=== PATIENT | male | born 1965 | race Caucasian/White ===

== ENCOUNTER 2016-11-05 21:52 | Emergency (ER) | payer OTHER ==
--- NOTE | 2016-11-05 22:51 | DIAGNOSTIC IMAGING REPORT ---
PROCEDURE: XR CHEST 2 VIEW INDICATION: CHEST PAIN TECHNIQUE: PA and lateral views. COMPARISON: Compared to chest x-ray on 05/08/2011. FINDINGS: Lungs are clear. Heart and mediastinum are normal. Thorax is normal. IMPRESSION: 1. Negative chest.
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
--- NOTE | 2016-11-05 22:56 | ED ORDER SUMMARY ---
..... Patient: JOÃO NGO JR OrderSheet [facility] VisitID: [id number] [place] [address] 51y, M Registration Date/Time: 11/05/2016 ORDER SHEET Weight: 88.4 kg (stated) Allergies: NKA GENERAL ORDERS: Chest 2V Urgent (22:06 11/05/2016 EKoroleva P.A.-C) (Ack 22:11 CHagerty ER Cytogenetic Technologist) (22:17 CHagerty ER Cytogenetic Technologist) EKG - ER Stat (22:06 11/05/2016 EKoroleva P.A.-C) (Ack 22:11 CHagerty ER Cytogenetic Technologist) (22:11 CHagerty ER Cytogenetic Technologist) MEDICATION ORDERS: Percocet PO 5/325 mg (HIGH ALERT MEDICATION, NOW) (22:54 11/05/2016 EKoroleva P.A.-C) (Ack 22:57 DDean R.N.) (23:13 DDean R.N.) Flexeril PO 10 mg (NOW) (23:01 11/05/2016 EKoroleva P.A.-C) (23:08 DDean R.N.) IV FLUIDS: ORDER SHEET NOTES: [Electronically signed by Jenniffer LunaAKeny-C (23:06 11/05/2016)] [Electronically signed by Riana Roque R.N. (23:11/05/2016)] [Electronically locked/signed by Riana Roque R.N. (23:14 11/05/2016)]
--- NOTE | 2016-11-05 22:56 | ED ORDER SUMMARY ---
..... Patient: JOÃO NGO JR OrderSheet [facility] VisitID: [id number] [place] [address] 51y, M Registration Date/Time: 11/05/2016 ORDER SHEET Weight: 88.4 kg (stated) Allergies: NKA GENERAL ORDERS: Chest 2V Urgent (22:06 11/05/2016 EKoroleva P.A.-C) (Ack 22:11 CHagerty ER Type Casting Machine Operator) (22:17 CHagerty ER Type Casting Machine Operator) EKG - ER Stat (22:06 11/05/2016 EKoroleva P.A.-C) (Ack 22:11 CHagerty ER Type Casting Machine Operator) (22:11 CHagerty ER Type Casting Machine Operator) MEDICATION ORDERS: Percocet PO 5/325 mg (HIGH ALERT MEDICATION, NOW) (22:54 11/05/2016 EKoroleva P.A.-C) (Ack 22:57 DDean R.N.) (23:13 DDean R.N.) Flexeril PO 10 mg (NOW) (23:01 11/05/2016 EKoroleva P.A.-C) (23:08 DDean R.N.) IV FLUIDS: ORDER SHEET NOTES: [Electronically signed by Jenniffer LunaAKeny-C (23:06 11/05/2016)] [Electronically signed by Riana Roque R.N. (23:11/05/2016)] [Electronically locked/signed by Riana Roque R.N. (23:14 11/05/2016)]
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
--- NOTE | 2016-11-05 23:14 | ED MED RECONCILIATION SUMMARY ---
Patient: JOÃO NGO JR Medication Reconciliation Report [facility] VisitID: [id number] [address] [place] [address] 51y, M Registration Date/Time: 11/05/2016 Weight: 88.4 kg Height/Length: 70 in. BMI: 28.0 ALLERGIES: NKA The patient's Home Medications are listed below: THE FOLLOWING MEDICATIONS NEED TO BE RECONCILED: Lopid Oral 600 mg, 2x a day PriLOSEC Oral 40 mg, daily Zocor Oral, daily The source(s) of the original Home Medication information: Not obtained. The following Medications were given to the patient in the Emergency Department: Flexeril [PO] PO 10 mg, administered: 11/05/2016 11:00:00 PM Percocet [PO] PO 1 tab, administered: 11/05/2016 10:50:00 PM The following Medications were prescribed to the patient: Hydrocodone/APAP 5mg / 325mg: take 1 orally every 6 hours as needed for pain. Dispense fifteen (15). No refill. -- Jenniffer Luna, P.A.-Bakari Robaxin 750 mg: take 1 orally every 8 hours for 3 days, as needed for muscle spasm. Dispense fifteen (15). No refill. Substitution is permissible. -- Jenniffer Luna, P.A.-C
--- NOTE | 2016-11-05 23:14 | ED DISCHARGE INSTRUCTIONS ---
Patient: JOÃO NGO JR General Instructions [facility] VisitID: [id number] [address] [place] [address] 51y, M Registration Date/Time: 11/05/2016 Chronic thoracic and lumbar back pain. Hypertension. INSTRUCTIONS Apply ice. ([facility] ). Prescription Medications: Hydrocodone/APAP 5mg / 325mg: take 1 orally every 6 hours as needed for pain. Dispense fifteen (15). No refill. Robaxin 750 mg: take 1 orally every 8 hours for 3 days, as needed for muscle spasm. Dispense fifteen (15). No refill. Substitution is permissible. Follow-up: Follow up with your doctor in three days. Understanding of the discharge instructions verbalized by patient. ADDITIONAL INFORMATION Back Pain [Acute Or Chronic] Back pain is usually caused by an injury to the muscles or ligaments of the spine. Sometimes the disks that separate each bone in the spine may bulge and cause pain by pressing on a nearby nerve. Back pain may also appear after a sudden twisting/bending force (such as in a car accident), after a simple awkward movement, or lifting something heavy with poor body positioning. In either case, muscle spasm is often present and adds to the pain. Acute back pain usually gets better in one to two weeks. Back pain related to disk disease, arthritis in the spinal joints or spinal stenosis (narrowing of the spinal canal) can become chronic and last for months or years. Unless you had a physical injury (for example, a car accident or fall) X-rays are usually not ordered for the initial evaluation of back pain. If pain continues and does not respond to medical treatment, x-rays and other tests may be performed at a later time. Home Care: You may need to stay in bed the first few days. But, as soon as possible, begin sitting or walking to avoid problems with prolonged bed rest (muscle weakness, worsening back stiffness and pain, blood clots in the legs). When in bed, try to find a position of comfort. A firm mattress is best. Try lying flat on your back with pillows under your knees. You can also try lying on your side with your knees bent up towards your chest and a pillow between your knees. Avoid prolonged sitting. This puts more stress on the lower back than standing or walking. During the first two days after injury, apply an ICE PACK to the painful area for 20 minutes every 2-4 hours. This will reduce swelling and pain. HEAT (hot shower, hot bath or heating pad) works well for muscle spasm. You can start with ice, then switch to heat after two days. Some patients feel best alternating ice and heat treatments. Use the one method that feels the best to you. You may use acetaminophen (Tylenol) or ibuprofen (Motrin, Advil) to control pain, unless another pain medicine was prescribed. [NOTE: If you have chronic liver or kidney disease or ever had a stomach ulcer or GI bleeding, talk with your doctor before using these medicines.] Be aware of safe lifting methods and do not lift anything over 15 pounds until all the pain is gone. Follow Up with your doctor or this facility if your symptoms do not start to improve after one week. Physical therapy may be needed. [NOTE: If X-rays were taken, they will be reviewed by a radiologist. You will be notified of any new findings that may affect your care.] Get Prompt Medical Attention if any of the following occur: Pain becomes worse or spreads to your legs Weakness or numbness in one or both legs Loss of bowel or bladder control Numbness in the groin or genital area Hydrocodone Bitartrate, Acetaminophen Oral tablet What is this medicine? ACETAMINOPHEN; HYDROCODONE (a set a DANDY wendy fen; aram droe KOE done) is a pain reliever. It is used to treat mild to moderate pain. How should I use this medicine? Take this medicine by mouth. Swallow it with a full glass of water. Follow the directions on the prescription label. If the medicine upsets your stomach, take the medicine with food or milk. Do not take more than you are told to take. Talk to your crinkling machine operator regarding the use of this medicine in children. This medicine is not approved for use in children. What side effects may I notice from receiving this medicine? Side effects that you should report to your doctor or health healthcare network consultant as soon as possible: allergic reactions like skin rash, itching or hives, swelling of the face, lips, or tongue breathing problems confusion feeling faint or lightheaded, falls stomach pain yellowing of the eyes or skin Side effects that usually do not require medical attention (report to your doctor or health healthcare network consultant if they continue or are bothersome): nausea, vomiting stomach upset What may interact with this medicine? alcohol antihistamines isoniazid medicines for depression, anxiety, or psychotic disturbances medicines for sleep muscle relaxants naltrexone narcotic medicines (opiates) for pain phenobarbital ritonavir tramadol What if I miss a dose? If you miss a dose, take it as soon as you can. If it is almost time for your next dose, take only that dose. Do not take double or extra doses. Where should I keep my medicine? Keep out of the reach of children. This medicine can be abused. Keep your medicine in a safe place to protect it from theft. Do not share this medicine with anyone. Selling or giving away this medicine is dangerous and against the law. Store at room temperature between 15 and 30 degrees C (59 and 86 degrees F). Protect from light. Keep container tightly closed. Throw away any unused medicine after the expiration date. Discard unused medicine and used packaging carefully. Pets and children can be harmed if they find used or lost packages. What should I tell my health care provider before I take this medicine? They need to know if you have any of these conditions: brain tumor Crohn's disease, inflammatory bowel disease, or ulcerative colitis drink more than 3 alcohol-containing drinks per day drug abuse or addiction head injury heart or circulation problems kidney disease or problems going to the bathroom liver disease lung disease, asthma, or breathing problems an unusual or allergic reaction to acetaminophen, hydrocodone, other opioid analgesics, other medicines, foods, dyes, or preservatives or trying to get breast-feeding What should I watch for while using this medicine? Tell your doctor or health healthcare network consultant if your pain does not go away, if it gets worse, or if you have new or a different type of pain. You may develop tolerance to the medicine. Tolerance means that you will need a higher dose of the medicine for pain relief. Tolerance is normal and is expected if you take the medicine for a long time. Do not suddenly stop taking your medicine because you may develop a severe reaction. Your body becomes used to the medicine. This does NOT mean you are addicted. Addiction is a behavior related to getting and using a drug for a non-medical reason. If you have pain, you have a medical reason to take pain medicine. Your doctor will tell you how much medicine to take. If your doctor wants you to stop the medicine, the dose will be slowly lowered over time to avoid any side effects. You may get drowsy or dizzy when you first start taking the medicine or change doses. Do not drive, use machinery, or do anything that may be dangerous until you know how the medicine affects you. Stand or sit up slowly. There are different types of narcotic medicines (opiates) for pain. If you take more than one type at the same time, you may have more side effects. Give your health care provider a list of all medicines you use. Your doctor will tell you how much medicine to take. Do not take more medicine than directed. Call emergency for help if you have problems breathing. The medicine will cause constipation. Try to have a bowel movement at least every 2 to 3 days. If you do not have a bowel movement for 3 days, call your doctor or health healthcare network consultant. Too much acetaminophen can be very dangerous. Do not take Tylenol (acetaminophen) or medicines that contain acetaminophen with this medicine. Many non-prescription medicines contain acetaminophen. Always read the labels carefully. Methocarbamol Oral tablet What is this medicine? METHOCARBAMOL (meth oh SAVITA ba mole) helps to relieve pain and stiffness in muscles caused by strains, sprains, or other injury to your muscles. How should I use this medicine? Take this medicine by mouth with a full glass of water. Follow the directions on the prescription label. Take your medicine at regular intervals. Do not take your medicine more often than directed. Talk to your crinkling machine operator regarding the use of this medicine in children. Special care may be needed. What side effects may I notice from receiving this medicine? Side effects that you should report to your doctor or health healthcare network consultant as soon as possible: allergic reactions like skin rash, itching or hives, swelling of the face, lips, or tongue blurred vision or changes in vision confusion fainting spells fever nausea or vomiting seizures Side effects that usually do not require medical attention (report to your doctor or health healthcare network consultant if they continue or are bothersome): dizziness drowsiness headache metallic taste What may interact with this medicine? alcohol or medicines that contain alcohol cholinesterase inhibitors like neostigmine, ambenonium, and pyridostigmine bromide other medicines that cause drowsiness What if I miss a dose? If you miss a dose, take it as soon as you can. If it is almost time for your next dose, take only the next dose. Do not take double or extra doses. Where should I keep my medicine? Keep out of the reach of children. Store at room temperature between 20 and 25 degrees C (68 and 77 degrees F). Keep container tightly closed. Throw away any unused medicine after the expiration date. What should I tell my health care provider before I take this medicine? They need to know if you have any of these conditions: kidney disease seizures an unusual or allergic reaction to methocarbamol, other medicines, foods, dyes, or preservatives or trying to get breast-feeding What should I watch for while using this medicine? You may get drowsy or dizzy. Do not drive, use machinery, or do anything that needs mental alertness until you know how this medicine affects you. Do not stand or sit up quickly, especially if you are an older patient. This reduces the risk of dizzy or fainting spells. Alcohol may interfere with the effect of this medicine. Avoid alcoholic drinks. You have been given the following additional information: Back Pain (Acute Or Chronic) Hydrocodone Bitartrate, Acetaminophen Oral tablet Methocarbamol Oral tablet (Electronically signed by Jenniffer Luna P.A.-C 11/05/2016 23:06)
--- NOTE | 2016-11-05 23:14 | ED DISCHARGE INSTRUCTIONS ---
Patient: JOÃO NGO JR General Instructions [facility] VisitID: [id number] [address] [place] [address] 51y, M Registration Date/Time: 11/05/2016 Chronic thoracic and lumbar back pain. Hypertension. INSTRUCTIONS Apply ice. ([facility] ). Prescription Medications: Hydrocodone/APAP 5mg / 325mg: take 1 orally every 6 hours as needed for pain. Dispense fifteen (15). No refill. Robaxin 750 mg: take 1 orally every 8 hours for 3 days, as needed for muscle spasm. Dispense fifteen (15). No refill. Substitution is permissible. Follow-up: Follow up with your doctor in three days. Understanding of the discharge instructions verbalized by patient. ADDITIONAL INFORMATION Back Pain [Acute Or Chronic] Back pain is usually caused by an injury to the muscles or ligaments of the spine. Sometimes the disks that separate each bone in the spine may bulge and cause pain by pressing on a nearby nerve. Back pain may also appear after a sudden twisting/bending force (such as in a car accident), after a simple awkward movement, or lifting something heavy with poor body positioning. In either case, muscle spasm is often present and adds to the pain. Acute back pain usually gets better in one to two weeks. Back pain related to disk disease, arthritis in the spinal joints or spinal stenosis (narrowing of the spinal canal) can become chronic and last for months or years. Unless you had a physical injury (for example, a car accident or fall) X-rays are usually not ordered for the initial evaluation of back pain. If pain continues and does not respond to medical treatment, x-rays and other tests may be performed at a later time. Home Care: You may need to stay in bed the first few days. But, as soon as possible, begin sitting or walking to avoid problems with prolonged bed rest (muscle weakness, worsening back stiffness and pain, blood clots in the legs). When in bed, try to find a position of comfort. A firm mattress is best. Try lying flat on your back with pillows under your knees. You can also try lying on your side with your knees bent up towards your chest and a pillow between your knees. Avoid prolonged sitting. This puts more stress on the lower back than standing or walking. During the first two days after injury, apply an ICE PACK to the painful area for 20 minutes every 2-4 hours. This will reduce swelling and pain. HEAT (hot shower, hot bath or heating pad) works well for muscle spasm. You can start with ice, then switch to heat after two days. Some patients feel best alternating ice and heat treatments. Use the one method that feels the best to you. You may use acetaminophen (Tylenol) or ibuprofen (Motrin, Advil) to control pain, unless another pain medicine was prescribed. [NOTE: If you have chronic liver or kidney disease or ever had a stomach ulcer or GI bleeding, talk with your doctor before using these medicines.] Be aware of safe lifting methods and do not lift anything over 15 pounds until all the pain is gone. Follow Up with your doctor or this facility if your symptoms do not start to improve after one week. Physical therapy may be needed. [NOTE: If X-rays were taken, they will be reviewed by a radiologist. You will be notified of any new findings that may affect your care.] Get Prompt Medical Attention if any of the following occur: Pain becomes worse or spreads to your legs Weakness or numbness in one or both legs Loss of bowel or bladder control Numbness in the groin or genital area Hydrocodone Bitartrate, Acetaminophen Oral tablet What is this medicine? ACETAMINOPHEN; HYDROCODONE (a set a DANDY wenyd fen; aram droe KOE done) is a pain reliever. It is used to treat mild to moderate pain. How should I use this medicine? Take this medicine by mouth. Swallow it with a full glass of water. Follow the directions on the prescription label. If the medicine upsets your stomach, take the medicine with food or milk. Do not take more than you are told to take. Talk to your property developer regarding the use of this medicine in children. This medicine is not approved for use in children. What side effects may I notice from receiving this medicine? Side effects that you should report to your doctor or health health care administrator as soon as possible: allergic reactions like skin rash, itching or hives, swelling of the face, lips, or tongue breathing problems confusion feeling faint or lightheaded, falls stomach pain yellowing of the eyes or skin Side effects that usually do not require medical attention (report to your doctor or health health care administrator if they continue or are bothersome): nausea, vomiting stomach upset What may interact with this medicine? alcohol antihistamines isoniazid medicines for depression, anxiety, or psychotic disturbances medicines for sleep muscle relaxants naltrexone narcotic medicines (opiates) for pain phenobarbital ritonavir tramadol What if I miss a dose? If you miss a dose, take it as soon as you can. If it is almost time for your next dose, take only that dose. Do not take double or extra doses. Where should I keep my medicine? Keep out of the reach of children. This medicine can be abused. Keep your medicine in a safe place to protect it from theft. Do not share this medicine with anyone. Selling or giving away this medicine is dangerous and against the law. Store at room temperature between 15 and 30 degrees C (59 and 86 degrees F). Protect from light. Keep container tightly closed. Throw away any unused medicine after the expiration date. Discard unused medicine and used packaging carefully. Pets and children can be harmed if they find used or lost packages. What should I tell my health care provider before I take this medicine? They need to know if you have any of these conditions: brain tumor Crohn's disease, inflammatory bowel disease, or ulcerative colitis drink more than 3 alcohol-containing drinks per day drug abuse or addiction head injury heart or circulation problems kidney disease or problems going to the bathroom liver disease lung disease, asthma, or breathing problems an unusual or allergic reaction to acetaminophen, hydrocodone, other opioid analgesics, other medicines, foods, dyes, or preservatives or trying to get breast-feeding What should I watch for while using this medicine? Tell your doctor or health health care administrator if your pain does not go away, if it gets worse, or if you have new or a different type of pain. You may develop tolerance to the medicine. Tolerance means that you will need a higher dose of the medicine for pain relief. Tolerance is normal and is expected if you take the medicine for a long time. Do not suddenly stop taking your medicine because you may develop a severe reaction. Your body becomes used to the medicine. This does NOT mean you are addicted. Addiction is a behavior related to getting and using a drug for a non-medical reason. If you have pain, you have a medical reason to take pain medicine. Your doctor will tell you how much medicine to take. If your doctor wants you to stop the medicine, the dose will be slowly lowered over time to avoid any side effects. You may get drowsy or dizzy when you first start taking the medicine or change doses. Do not drive, use machinery, or do anything that may be dangerous until you know how the medicine affects you. Stand or sit up slowly. There are different types of narcotic medicines (opiates) for pain. If you take more than one type at the same time, you may have more side effects. Give your health care provider a list of all medicines you use. Your doctor will tell you how much medicine to take. Do not take more medicine than directed. Call emergency for help if you have problems breathing. The medicine will cause constipation. Try to have a bowel movement at least every 2 to 3 days. If you do not have a bowel movement for 3 days, call your doctor or health health care administrator. Too much acetaminophen can be very dangerous. Do not take Tylenol (acetaminophen) or medicines that contain acetaminophen with this medicine. Many non-prescription medicines contain acetaminophen. Always read the labels carefully. Methocarbamol Oral tablet What is this medicine? METHOCARBAMOL (meth oh SAVITA ba mole) helps to relieve pain and stiffness in muscles caused by strains, sprains, or other injury to your muscles. How should I use this medicine? Take this medicine by mouth with a full glass of water. Follow the directions on the prescription label. Take your medicine at regular intervals. Do not take your medicine more often than directed. Talk to your property developer regarding the use of this medicine in children. Special care may be needed. What side effects may I notice from receiving this medicine? Side effects that you should report to your doctor or health health care administrator as soon as possible: allergic reactions like skin rash, itching or hives, swelling of the face, lips, or tongue blurred vision or changes in vision confusion fainting spells fever nausea or vomiting seizures Side effects that usually do not require medical attention (report to your doctor or health health care administrator if they continue or are bothersome): dizziness drowsiness headache metallic taste What may interact with this medicine? alcohol or medicines that contain alcohol cholinesterase inhibitors like neostigmine, ambenonium, and pyridostigmine bromide other medicines that cause drowsiness What if I miss a dose? If you miss a dose, take it as soon as you can. If it is almost time for your next dose, take only the next dose. Do not take double or extra doses. Where should I keep my medicine? Keep out of the reach of children. Store at room temperature between 20 and 25 degrees C (68 and 77 degrees F). Keep container tightly closed. Throw away any unused medicine after the expiration date. What should I tell my health care provider before I take this medicine? They need to know if you have any of these conditions: kidney disease seizures an unusual or allergic reaction to methocarbamol, other medicines, foods, dyes, or preservatives or trying to get breast-feeding What should I watch for while using this medicine? You may get drowsy or dizzy. Do not drive, use machinery, or do anything that needs mental alertness until you know how this medicine affects you. Do not stand or sit up quickly, especially if you are an older patient. This reduces the risk of dizzy or fainting spells. Alcohol may interfere with the effect of this medicine. Avoid alcoholic drinks. You have been given the following additional information: Back Pain (Acute Or Chronic) Hydrocodone Bitartrate, Acetaminophen Oral tablet Methocarbamol Oral tablet (Electronically signed by Jenniffer Luna P.A.-C 11/05/2016 23:06)
--- NOTE | 2016-11-05 23:14 | ED MAR SUMMARY ---
..... Medication Administration Record [facility] [address] [place] [address] Patient: JOÃO NGO Visit ID: [id number] 51y, M Weight: 88.4 kg Height/Length: 70 in BMI: 28 ALLERGIES: NKA Given 22:50 11/05/2016 Riana Roque R.N. Medication Administered: PERCOCET [PO] (OXYCODONE-ACETAMINOPHEN), Dose: 1 tab 5/325 mg Tablets PO. Medication Ordered: Percocet PO 5/325 mg (HIGH ALERT MEDICATION, NOW). Given 23:00 11/05/2016 Riana Roque RKenyN. Medication Administered: FLEXERIL [PO] (CYCLOBENZAPRINE HCL), Dose: 10 mg Tablets PO. Medication Ordered: Flexeril PO 10 mg (NOW).
--- NOTE | 2016-11-05 23:14 | ED MED RECONCILIATION SUMMARY ---
Patient: JOÃO NGO JR Medication Reconciliation Report [facility] VisitID: [id number] [address] [place] [address] 51y, M Registration Date/Time: 11/05/2016 Weight: 88.4 kg Height/Length: 70 in. BMI: 28.0 ALLERGIES: NKA The patient's Home Medications are listed below: THE FOLLOWING MEDICATIONS NEED TO BE RECONCILED: Lopid Oral 600 mg, 2x a day PriLOSEC Oral 40 mg, daily Zocor Oral, daily The source(s) of the original Home Medication information: Not obtained. The following Medications were given to the patient in the Emergency Department: Flexeril [PO] PO 10 mg, administered: 11/05/2016 11:00:00 PM Percocet [PO] PO 1 tab, administered: 11/05/2016 10:50:00 PM The following Medications were prescribed to the patient: Hydrocodone/APAP 5mg / 325mg: take 1 orally every 6 hours as needed for pain. Dispense fifteen (15). No refill. -- Jenniffer Luna, P.A.-Bakari Robaxin 750 mg: take 1 orally every 8 hours for 3 days, as needed for muscle spasm. Dispense fifteen (15). No refill. Substitution is permissible. -- Jenniffer Luna, P.A.-C
--- NOTE | 2016-11-05 23:14 | ED MAR SUMMARY ---
..... Medication Administration Record [facility] [address] [place] [address] Patient: JOÃO NGO Visit ID: [id number] 51y, M Weight: 88.4 kg Height/Length: 70 in BMI: 28 ALLERGIES: NKA Given 22:50 11/05/2016 Riana Roque R.N. Medication Administered: PERCOCET [PO] (OXYCODONE-ACETAMINOPHEN), Dose: 1 tab 5/325 mg Tablets PO. Medication Ordered: Percocet PO 5/325 mg (HIGH ALERT MEDICATION, NOW). Given 23:00 11/05/2016 Riana Roque RKenyN. Medication Administered: FLEXERIL [PO] (CYCLOBENZAPRINE HCL), Dose: 10 mg Tablets PO. Medication Ordered: Flexeril PO 10 mg (NOW).
== END 2016-11-05 23:00 | disposition home or self-care (01) ==
LOC: ED SRH 21:52
DX: M54.5 Low back pain (principal); M54.6 Pain in thoracic spine; G89.29 Other chronic pain; I10 Essential (primary) hypertension; Z79.899 Other long term (current) drug therapy